=== PATIENT | female | born 1965 | race Caucasian/White ===

== ENCOUNTER 2018-12-03 13:20 | Emergency (ER) | payer OTHER ==
[2018-12-03] MEDS ORDERED: Sodium Chloride 0.9% 10 ML Syringe FLUSH PRN (14:30)
[2018-12-03] MEDS ORDERED: Acetaminophen 325 MG Tab PO ONE (14:31)
--- NOTE | 2018-12-03 14:35 | EDM.PDOC ---
ED HPI GENERAL MEDICAL PROBLEM - General Chief Complaint: Abdominal Pain Stated Complaint: PAIN IN MID STOMACH AREA Time Seen by Provider: 12/03/18 14:20 Source of Information: Reports: Patient History Limitations: Reports: No Limitations - History of Present Illness INITIAL COMMENTS - FREE TEXT/NARRATIVE: Myriam is a 53 year old female, presents to the ED today with c/o lower abdominal pain and diarrhea for the last three days, fever on and off, no nausea or vomiting, has not taken anything for her symptoms, states she thinks she is staying hydrated. also has rash from fever which patient states is typical for her. Patient denies any hematochezia, no hx of chron's ulcerative colitis or diverticulitis, no abdominal surgical hx. Patient denies any recent travel or antibiotic use. Onset: Gradual Duration: Day(s): (3) - Related Data Allergies Allergy/AdvReac Type Severity Reaction Status Date / Time Penicillins Allergy Cannot Verified 12/03/18 13:50 Remember Home Meds: Home Meds NK [No Known Home Meds] 12/03/18 [History] Past Medical History Cardiovascular History: Reports: Heart Murmur Genitourinary History: Reports: Renal Calculus [employer] History: Reports: - Infectious Disease History Infectious Disease History: Reports: Chicken Pox - Past Surgical History HEENT Surgical History: Reports: Adenoidectomy Female Surgical History: Reports: Lithotripsy/ESWL Social & Family History - Tobacco Use Smoking Status *Q: Never Smoker - Caffeine Use Caffeine Use: Reports: Coffee - Recreational Drug Use Recreational Drug Use: No ED ROS GENERAL - Review of Systems Review Of Systems: ROS reveals no pertinent complaints other than HPI. ED EXAM, GI/ABD - Physical Exam Exam: See Below Exam Limited By: No Limitations General Appearance: Alert, WD/WN, No Apparent Distress Throat/Mouth: Normal Inspection, Normal Oropharynx Head: Atraumatic Neck: Normal Inspection Respiratory/Chest: No Respiratory Distress, Lungs Clear, Normal Breath Sounds Cardiovascular: Normal Peripheral Pulses, Regular Rate, Rhythm, No Murmur GI/Abdominal Exam: Normal Bowel Sounds, Soft, Tender (elan-umbilical, rlq, pain at mcburney's point) Back Exam: Normal Inspection Extremities: Normal Inspection, Normal Range of Motion Neurological: Alert, Oriented, CN II-XII Intact Psychiatric: Normal Affect, Normal Mood Skin Exam: Rash (macular rash to trunck and posterior neck, blanchable, no petechia) Course - Vital Signs Last Recorded V/S: Last Vital Signs Temp 36.9 C 12/03/18 16:12 Pulse 76 12/03/18 16:12 Resp 16 12/03/18 16:12 BP 101/52 L 12/03/18 16:12 Pulse Ox 99 12/03/18 16:12 Myriam is a 53 year old female who presents to the ED today with c/o lower abdominal pain and diarrhea for the last three days. Please refer to HPI and focused exam. Patient arrives here hemodynamciallly stable, pressure soft here but not unusual per patient. Patient did fly here has eaten from several different restaurants recently. Patient likely with viral gastroenteritis. PIV started, patient given a liter of fluid here, blood work and UA returns, white count is normal, there is aleft shift, cmp returns within normal limits, crp is elevated at 4.79. Lipase is normal. UA negative for infection. CT scan of abdomen and pelvis with contrast. CT scan shows localized inflammatory changes associated with the distal aspect of the ascending colon, close to the hepatic flexure, findings may related to focal colitis or right sided diverticulitis. No evidence of acute appendicitis. Trace free fluid in pelvis. findings discussed with patient, family hx of diverticulitis, no hx of colonoscopy for patient, will cover with cipro/flagyl and when patient return home discussed follow up with PCP to discuss colonoscopy in near future. Hydration encouraged. Tylenol for pain as needed. Declined need for anti- nausea medication. Recommended a good probiotic. Reasons to return discussed, patient agreeable and discharged in stable condition. - Orders/Labs/Meds Orders: Active Orders 24 hr Category Date Time Status Peripheral IV Care [RC] . DIRECTED Care 12/03/18 14:30 Active Iopamidol [Isovue-300 (61%)] Med 12/03/18 16:00 Active 100 ml IV . DIRECTED Sodium Chloride 0.9% [Normal Saline] 1,000 ml Med 12/03/18 14:45 Active IV ASDIRECTED Sodium Chloride 0.9% [Saline Flush] Med 12/03/18 14:30 Active 10 ml FLUSH ASDIRECTED PRN Peripheral IV Insertion Adult [OM.PC] Routine Oth 12/03/18 14:30 Ordered Medication Orders Sodium Chloride (Normal Saline) 1,000 mls @ 999 mls/hr IV ASDIRECTED VINCENZO Last Admin: 12/03/18 14:41 Dose: 999 mls/hr Iopamidol (Isovue-300 (61%)) 100 ml IV . DIRECTED [facility] Last Admin: 12/03/18 16:02 Dose: 100 ml Sodium Chloride (Saline Flush) 10 ml FLUSH ASDIRECTED PRN PRN Reason: Keep Vein Open Last Admin: 12/03/18 14:40 Dose: 10 ml Labs: Laboratory Tests 12/03/18 12/03/18 12/03/18 Range/Units 14:35 14:45 14:45 WBC 9.2 (4.5-11.0) K/uL RBC 4.50 (3.30-5.50) M/uL Hgb 13.2 (12.0-15.0) g/dL Hct 40.6 (36.0-48.0) % MCV 90 (80-98) fL MCH 29 (27-31) pg MCHC 33 (32-36) % Plt Count 166 (150-400) K/uL Neut % (Auto) 75 H (36-66) % Lymph % (Auto) 16 L (24-44) % [place] % (Auto) 7 H (2-6) % Eos % (Auto) 1 L (2-4) % Baso % (Auto) 0 (0-1) % Sodium 141 (140-148) mmol/L Potassium 3.9 (3.6-5.2) mmol/L Chloride 104 (100-108) mmol/L Carbon Dioxide 28 (21-32) mmol/L Anion Gap 8.7 (5.0-14.0) mmol/L BUN 11 (7-18) mg/dL Creatinine 0.6 (0.6-1.0) mg/dL Est Cr Clr Drug Dosing 114.62 mL/min Estimated GFR (MDRD) > 60 (>60) Glucose 101 (74-106) mg/dL Calcium 8.8 (8.5-10.1) mg/dL Total Bilirubin 0.9 (0.2-1.0) mg/dL AST 20 (15-37) U/L ALT 43 (12-78) U/L Alkaline Phosphatase 68 (46-116) U/L C-Reactive Protein 4.79 H (0.0-0.3) mg/dL Total Protein 7.2 (6.4-8.2) g/dL Albumin 3.6 (3.4-5.0) g/dL Globulin 3.6 H (2.3-3.5) g/dL Albumin/Globulin Ratio 1.0 L (1.2-2.2) Lipase 86 (73-393) U/L Urine Color Yellow Urine Appearance Slightly cloudy Urine pH 6.0 (4.5-8.0) Ur Specific [place] 1.005 L (1.008-1.030) Urine Protein Negative (NEGATIVE) mg/dL Urine Glucose (UA) Normal (NEGATIVE) mg/dL Urine Ketones Negative (NEGATIVE) mg/dL Urine Occult Blood Negative (NEGATIVE) Urine Nitrite Negative (NEGATIVE) Urine Bilirubin Negative (NEGATIVE) Urine Urobilinogen Normal (NORMAL) mg/dL Ur Leukocyte Esterase Negative (NEGATIVE) Urine RBC 0-5 (0-5) Urine WBC 0-5 (0-5) Ur Epithelial Cells Moderate Amorphous Sediment Not seen Urine Bacteria Many Urine Mucus Not seen Meds: Medications Generic Name Dose Route Start Last Admin Trade Name Freq PRN Reason Stop Dose Admin Sodium Chloride 1,000 mls @ 999 mls/hr 12/03/18 14:45 12/03/18 14:41 Normal Saline IV 999 mls/hr ASDIRECTED VINCENZO Administration Iopamidol 100 ml 12/03/18 16:00 12/03/18 16:02 Isovue-300 (61%) IV 100 ml . DIRECTED VINCENZO Administration Sodium Chloride 10 ml 12/03/18 14:30 12/03/18 14:40 Saline Flush FLUSH 10 ml ASDIRECTED PRN Administration Keep Vein Open Discontinued Medications Generic Name Dose Route Start Last Admin Trade Name Freq PRN Reason Stop Dose Admin Acetaminophen 650 mg 12/03/18 14:31 12/03/18 14:44 Tylenol PO 12/03/18 14:32 650 mg NOW ONE Administration Sodium Chloride 80 mls @ 3.5 mls/sec 12/03/18 15:48 12/03/18 16:02 Normal Saline IV 12/03/18 15:49 3 mls/sec ONETIME ONE Administration Sodium Chloride 10 ml 12/03/18 15:48 12/03/18 16:03 Saline Flush FLUSH 12/03/18 15:49 10 ml ONETIME ONE Administration Departure - Departure Time of Disposition: 17:15 Disposition: Home, Self-Care 01 Condition: Good Clinical Impression: Diverticula of colon, Colitis presumed infectious - Discharge Information Instructions: Diverticulitis, Colitis Referrals: PCP,None [Primary Care Provider] - Forms: ED Department Discharge Additional Instructions: Start antibiotics this evening, take as directed. I would recommend Culturelle (probiotic) while on the antibiotics to prevent diarrhea/upset stomach. Take these twice daily while on the antibiotics then three days after. Stay really well hydrated. Tylenol as needed for pain. Follow up with primary care when you return home for re-evaluation and to schedule a colonoscopy. Take care and I hope you feel better soon. - My Orders Last 24 Hours: My Active Orders 12/03/18 14:30 Peripheral IV Care [RC] . DIRECTED Sodium Chloride 0.9% [Saline Flush] 10 ml FLUSH ASDIRECTED PRN Peripheral IV Insertion Adult [OM.PC] Routine 12/03/18 14:45 Sodium Chloride 0.9% [Normal Saline] 1,000 ml IV ASDIRECTED 12/03/18 16:00 Iopamidol [Isovue-300 (61%)] 100 ml IV . DIRECTED - Assessment/Plan Last 24 Hours: My Active Orders 12/03/18 14:30 Peripheral IV Care [RC] . DIRECTED Sodium Chloride 0.9% [Saline Flush] 10 ml FLUSH ASDIRECTED PRN Peripheral IV Insertion Adult [OM.PC] Routine 12/03/18 14:45 Sodium Chloride 0.9% [Normal Saline] 1,000 ml IV ASDIRECTED 12/03/18 16:00 Iopamidol [Isovue-300 (61%)] 100 ml IV . DIRECTED
[2018-12-03] MEDS ORDERED: Sodium Chloride 0.9% 1,000 ML IV SCH (14:45)
[2018-12-03] MEDS ORDERED: Sodium Chloride 0.9% 10 ML Syringe FLUSH ONE (15:48)
[2018-12-03] MEDS ORDERED: Sodium Chloride 0.9% 80 ML IV ONE (15:48)
[2018-12-03] MEDS ORDERED: Iopamidol 612 MG/ML 100 ML Bottle IV SCH (16:00)
--- NOTE | 2018-12-03 16:47 | CRLCT ---
HISTORY: Lower abdominal pain with diarrhea. TECHNIQUE: Intravenous contrast enhanced CT of the abdomen and pelvis. 100 mL of Isovue-300 intravenous contrast was administered. COMPARISON: No prior. FINDINGS: No focal liver parenchymal abnormality. Gallbladder does not appear overly distended. No biliary ductal dilatation. Spleen size within normal limits. There are a few calcified splenic granulomata. Adrenal glands are normal. No focal pancreatic abnormality. 1.1 cm intrarenal calculus within the inferior pole collecting system of the left kidney. There is no hydronephrosis. No ureteral calculus. Pelvic calcifications likely represent phleboliths. - No small bowel obstruction. The appendix is well seen and appears normal. There is inflammatory change associated with the more distal aspect of the ascending colon close to the hepatic flexure. The colon in that region is nondistended which limits evaluation of its wall thickness though there is possible short segment wall thickening. Findings may relate to focal colitis or to right-sided diverticulitis. There is diverticulosis involving the left colon without acute diverticulitis of that portion of the colon. No free air. Trace pelvic free fluid is present more posteriorly without localized collection. There is no abdominal aortic aneurysm. - Degenerative changes of the hips. Degenerative changes of the lumbar spine. No acute fractures. - Minor subpleural atelectasis within the lung bases. IMPRESSION: 1. Localized inflammatory changes associated with the distal aspect of the ascending colon, close to the hepatic flexure. This may relate either to focal colitis or to right-sided diverticulitis. This does not relate to appendicitis as the appendix is well seen appears normal. Consider colonoscopy for further evaluation following the acute period. 2. Trace pelvic free fluid without localized collection. No free air. 3. Nonobstructive intrarenal calculus left kidney. Dictated by Jake Islas MD @ 12/03/2018 4:44:03 PM Please note that all CT scans at this facility use dose modulation, iterative reconstruction, and/or weight-based dosing when appropriate to reduce radiation dose to as low as reasonably achievable. Dictated by: Jake Islas MD @ 12/03/2018 16:44:30 (Electronically Signed)
== END 2018-12-03 17:14 | disposition home or self-care (01) ==
LOC: JP.ED 13:20
DX: K57.32 Diverticulitis of large intestine without perforation or abscess without bleeding (principal); K52.9 Noninfective gastroenteritis and colitis, unspecified; Z88.0 Allergy status to penicillin
CPT/HCPCS: 36415; 74177; 80053; 81001; 83690; 85025; 86140; 96360; 99284; A9270; J7030; Q9967